=== PATIENT | female | born 1990 | race American Indian/Alaskan Native ===

== ENCOUNTER 2018-05-21 22:33 | Emergency (ER) | payer MEDICAID ==
[2018-05-21 22:33] VITALS: BMI 28.3
[2018-05-21 23:00] VITALS: RESP 20
--- NOTE | 2018-05-21 23:37 | C.PDOC ---
History Of Present Illness 27 year old female presents to the ER with a complaint of nonexertional SOB. Patient states she had an episode of chest tightness yesterday. She was told she had "emphysema"; prior CT and CXR results reviewed and showed pockets of air and fluids in the left upper lung, no blood clot or suspicious mass visualized. Patient was referred to general ledger accountant and will be scheduled for further evaluation but came in for more frequent episodes of dyspnea. Denies fever, chills, or chest pain, URI sx at this time. Time Seen by Provider: 05/21/18 22:59 Chief Complaint (Nursing): Shortness Of Breath History Per: Patient History/Exam Limitations: no limitations Onset/Duration Of Symptoms: Days Current Symptoms Are (Timing): Still Present Current Respiratory Medications: None Associated Symptoms: Other (SOB). denies: Fever, Chills, Chest Pain Recent travel outside of the [place]: No Past Medical History Reviewed: Historical Data, Nursing Documentation, Vital Signs Vital Signs: Last Vital Signs Temp 98.5 F 05/21/18 23:48 Pulse 77 05/21/18 23:48 Resp 20 05/21/18 23:48 BP 111/74 05/21/18 23:48 Pulse Ox 99 05/22/18 01:48 - Medical History PMH: Anxiety, Emphysema Denies: Depression - [facility] MANUAL ASSIST JAMES SMYTH (06/18/15) Family History: States: Unknown Family Hx - Social History Hx Alcohol Use: No Hx Substance Use: No Review Of Systems Constitutional: Negative for: Fever, Chills Cardiovascular: Negative for: Chest Pain, Palpitations Respiratory: Positive for: Shortness of Breath Gastrointestinal: Negative for: Nausea, Vomiting Physical Exam - Physical Exam Appears: Non-toxic Skin: Normal Color, Warm, Dry Head: Atraumatic, Normacephalic Eye(s): bilateral: Normal Inspection Nose: Normal Oral Mucosa: Moist Chest: Symmetrical, No Tenderness Cardiovascular: Rhythm Regular Respiratory: Normal Breath Sounds, No Rales, No Rhonchi, No Stridor, No Wheezing Gastrointestinal/Abdominal: Soft, No Tenderness Back: No CVA Tenderness Neurological/Psych: Oriented x3, Normal Speech ED Course And Treatment O2 Sat by Pulse Oximetry: 99 (Room air) Pulse Ox Interpretation: Normal Progress Note: Prednisone administered. On reevaluation, patient is resting comfortably in no acute respiratory distress, vitals are stable, will discharge home with albuterol inhaler and prednisone and instructions to follow up with general ledger accountant as scheduled. Disposition - Disposition Referrals: Kahlil Alarcon MD [Staff Provider] - Disposition: HOME/ ROUTINE Disposition Time: 23:34 Condition: STABLE Additional Instructions: Please follow up with PMD Use albuterol inhaler as needed for shortness of breath or if chest tightness Return to ER if worse Return to ER if worse Prescriptions: Albuterol HFA [Ventolin HFA 90 mcg/actuation (8 g)] 2 puff IH [id number] #1 inhaler predniSONE [Prednisone] 40 mg PO DAILY #6 tab Instructions: Shortness of Breath (Dyspnea) (DC) Forms: [employer] (Macedonian) - Clinical Impression Clinical Impression: Dyspnea - Scribe Statement The provider has reviewed the documentation as recorded by the Scribe Mati Beverly All medical record entries made by the Scribe were at my direction and personally dictated by me. I have reviewed the chart and agree that the record accurately reflects my personal performance of the history, physical exam, medical decision making, and the department course for this patient. I have also personally directed, reviewed, and agree with the discharge instructions and disposition.
[2018-05-21 23:49] VITALS: BP 111/74; PULSE 77; TEMP 98.5
[2018-05-22 01:43] VITALS: O2SAT 99
== END 2018-05-21 23:49 | disposition home or self-care (01) ==
LOC: C.ER 22:33
DX: R06.00 Dyspnea, unspecified (principal)